=== PATIENT | female | born 1945 | race Caucasian/White ===

== ENCOUNTER 2016-04-24 16:02 | Emergency (ER) | payer OTHER, MEDICARE ==
[~2016-04-24] VITALS: Ht 157.5 cm; Wt 52.1 kg
[2016-04-24 16:02] VITALS: TEMP 98.5; Ht 157.5 cm; Wt 52.1 kg
[~2016-04-24 16:02] MED LIST: FLUT16SP12 NS; MONT10TA15 PO
--- NOTE | 2016-04-24 16:05 | NUR ---
PHYSICIAN VISIT DR. MCKEON IN TO SEE PATIENT.
--- OUTSIDE RECORDS SUMMARY | 2016-04-24 16:09 | XMS REPORT | Referral Summary ---
Author Author [facility] Organization [facility] Address Unknown Phone Unavailable Care Team Providers Care Music Video Producer Name Role Phone Mignon Patrick Primary Care Physician [phone] Encounter [facility] Date(s): 06/14/15 - 06/14/15 [facility] [address] [place] [address] [facility] Discharge Diagnosis: Asthma Discharge Disposition: 01-Home or Self Care Attending Physician: Maldonado Hernandez MD Admitting Physician: Maldonado Hernandez MD Vital Signs No data available for this section Problem List Condition Effective Dates Status Health Status Informant Allergic Active rhinitis/Hay fever(Confirmed) Allergic Active conjunctivitis(Confi rmed) Dry eye(Confirmed) Active Food Active allergy(Confirmed) High Active cholesterol(Confirme d) Chris's Resolved syndrome(Confirmed) Hyperlipidemia(Confi Resolved rmed) Asthma(Confirmed) Active Nonallergic Active rhinitis(Confirmed) Urticaria(Confirmed) Active Chicken Active pox(Confirmed) Allergies, Adverse Reactions, Alerts Substance Reaction Severity Status antihistamines Active sulfamethoxazole Hives/Skin Rash Active sulfanilamide topical Hives/Skin Rash Active trimethoprim Hives/Skin Rash Active Medications Atrovent 21 mcg/inh nasal spray 2 sprays, Nasal, TID, # 30 mL, 2 Refill(s), Pharmacy: [id number] Start Date: 06/14/15 Stop Date: 06/13/16 Status: Ordered cetirizine 10 mg oral tablet tabs, Oral, Daily, 0 Refill(s) Start Date: 10/19/13 Status: Ordered Flonase 50 mcg/inh nasal spray 2 sprays, Nasal, Daily, 0 Refill(s) Start Date: 09/14/13 Status: Ordered Qvar with Dose Counter 80 mcg/inh inhalation aerosol 1 puffs, Inhalation, BID, # 3 Each, 11 Refill(s), Pharmacy: [email or web address] Start Date: 07/03/14 Status: Ordered simvastatin 10 mg oral tablet 1 tabs, Oral, Bedtime (once a day), # 30 tabs, 0 Refill(s) Start Date: 09/14/13 Status: Ordered Singulair 10 mg oral tablet 1 tabs, Oral, qPM, # 30 tabs, 0 Refill(s) Start Date: 09/14/13 Status: Ordered Ventolin HFA 90 mcg/inh inhalation aerosol 2 puffs, Inhalation, q4hr, as needed for wheezing, # 8 g, 1 Refill(s), Pharmacy : [facility], 2 puffs Inhalation q4hr,PRN:as needed for wheezing Start Date: 07/03/14 Status: Ordered Results No data available for this section Immunizations No data available for this section Procedures Procedure Date Related Diagnosis Body Site Partial hypophysectomy by transfrontal 1987 approach Bilateral tubal ligation Cushings Fatty cyst removal Tonsillectomy and adenoidectomy Social History Social History Type Response Smoking Status Never smoker Assessment and Plan No data available for this section
--- OUTSIDE RECORDS SUMMARY | 2016-04-24 16:09 | XMS REPORT | Continuity of Care Document ---
Author Author [facility] Organization [facility] Address Unknown Phone Unavailable Allergies Active Description Code Type Severity Reaction Onset Reported/Identified Relationship to Patient Clinical Status Yes Antihistamines - Ethanolamine Antihistamines - Ethanolamine Drug Allergy Unknown 1ST GENERATION ANTIHISTAMINES?,MAY NEED TO CLARIFY W/PT 07/30/2015 Yes aspirin aspirin Drug Allergy Unknown . 07/30/2015 Yes Sulfa (Sulfonamide Antibiotics) Sulfa (Sulfonamide Antibiotics) Drug Allergy Unknown . 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 Visit Date/Time Discharge Status Pt. Type Provider Facility Loc./Unit Complaint [id number] 07/30/2015 09:06:00 2015 00:00:00 DIS Outpatient Justino Gonzales MD [facility]
--- OUTSIDE RECORDS SUMMARY | 2016-04-24 16:09 | XMS REPORT | Referral Summary ---
Author Author [facility] Organization [facility] Address Unknown Phone Unavailable Care Team Providers Care It Systems Engineer Name Role Phone Mignon Patrick Primary Care Physician [phone] Encounter Date(s): 10/06/14 - 10/06/14 [facility] [address] [place] [address] [facility] Discharge Diagnosis: Asthma Discharge Disposition: 01-Home or Self Care Attending Physician: Vicenta Petty Admitting Physician: Vicenta Petty Vital Signs No data available for this section Problem List Condition Effective Dates Status Health Status Informant Allergic Active rhinitis/Hay fever(Confirmed) Asthma(Confirmed) Active Allergic Active conjunctivitis(Confi rmed) Dry eye(Confirmed) Active Food Active allergy(Confirmed) High Active cholesterol(Confirme d) Chris's Resolved syndrome(Confirmed) Hyperlipidemia(Confi Resolved rmed) Nonallergic Active rhinitis(Confirmed) Urticaria(Confirmed) Active Chicken Active pox(Confirmed) Allergies, Adverse Reactions, Alerts Substance Reaction Severity Status antihistamines Active sulfamethoxazole Hives/Skin Rash Active sulfanilamide topical Hives/Skin Rash Active trimethoprim Hives/Skin Rash Active Medications albuterol 2.5 mg/3 mL (0.083%) inhalation solution See Instructions, 1 vial every 4-6 hrs prn., 0 Refill(s) Start Date: 09/14/13 Status: Ordered Atrovent 42 mcg/inh nasal spray 2 sprays, Nasal, TID, # 15 mL, 11 Refill(s), Pharmacy: [facility] Start Date: 02/22/15 Status: Ordered cetirizine 10 mg oral tablet tabs, Oral, Daily, 0 Refill(s) Start Date: 10/19/13 Status: Ordered Flonase 50 mcg/inh nasal spray 2 sprays, Nasal, Daily, 0 Refill(s) Start Date: 09/14/13 Status: Ordered Qvar with Dose Counter 80 mcg/inh inhalation aerosol 1 puffs, Inhalation, BID, # 3 Each, 11 Refill(s), Pharmacy: [facility] Start Date: 07/03/14 Status: Ordered [...] # 8 g, 1 Refill(s), Pharmacy : [facility], 2 puffs Inhalation q4hr,PRN:as needed [...]
--- OUTSIDE RECORDS SUMMARY | 2016-04-24 16:09 | XMS REPORT | Referral Summary ---
Author Author [facility] Organization [facility] Address Unknown Phone Unavailable Care Team Providers Care Trimmer Loader Name Role Phone Mignon Patrick Primary Care Physician [phone] Encounter [facility] [id number] Date(s): 10/06/14 - 10/06/14 [facility] [address] [place] [address] [facility] Discharge Diagnosis: Allergic conjunctivitis Discharge Diagnosis: Food allergy Discharge Diagnosis: Dry eye Discharge Diagnosis: Asthma Discharge Diagnosis: Allergic rhinitis Discharge Diagnosis: Nonallergic rhinitis Discharge Disposition: 01-Home or Self Care Attending [...] TID, # 15 mL, 11 Refill(s), Pharmacy: [id number] Start Date: 02/22/15 Status: Ordered cetirizine 10 mg oral tablet tabs, Oral, Daily, 0 Refill(s) Start Date: 10/19/13 Status: Ordered Flonase 50 mcg/inh nasal spray 2 sprays, Nasal, Daily, 0 Refill(s) Start Date: 09/14/13 Status: Ordered Qvar with Dose Counter 80 mcg/inh inhalation aerosol 1 puffs, Inhalation, BID, # 3 Each, 11 Refill(s), Pharmacy: [facility] Start Date: 07/03/14 Status: Ordered [...] # 8 g, 1 Refill(s), Pharmacy : [facility], 2 puffs Inhalation q4hr,PRN:as needed [...] Smoking Status Never smoker Assessment and Plan Extracted from: Title: Ambulatory Patient Education Author: Vicenta Petty Date: Family Medicine Asthma Asthma is a recurring condition in which the airways tighten and narrow. Asthma can make it difficult to breathe. It can cause coughing, wheezing, and shortness of breath. Asthma episodes, also called asthma attacks, range from minor to life-threatening. Asthma cannot be cured, but medicines and lifestyle changes can help control it. CAUSES Asthma is believed to be caused by inherited (genetic) and environmental factors , but its exact cause is unknown. Asthma may be triggered by allergens, lung infections, or irritants in the air. Asthma triggers are different for each person. Common triggers include: Animal dander. Dust mites. Cockroaches. Pollen from trees or grass. Mold. Smoke. Air pollutants such as dust, household store host, hair sprays, aerosol sprays, paint fumes, strong chemicals, or strong odors. Cold air, weather changes, and winds (which increase molds and pollens in the air). Strong emotional expressions such as crying or laughing hard. Stress. Certain medicines (such as aspirin) or types of drugs (such as beta- blockers). Sulfites in foods and drinks. Foods and drinks that may contain sulfites include dried fruit, potato chips, and sparkling grape juice. Infections or inflammatory conditions such as the flu, a cold, or an inflammation of the nasal membranes (rhinitis). Gastroesophageal reflux disease (GERD). Exercise or strenuous activity. SYMPTOMS Symptoms may occur immediately after asthma is triggered or many hours later. Symptoms include: Wheezing. Excessive nighttime or mental health social worker coughing. Frequent or severe coughing with a common cold. Chest tightness. Shortness of breath. DIAGNOSIS The diagnosis of asthma is made by a review of your medical history and a physical exam. Tests may also be performed. These may include: Lung function studies. These tests show how much air you breathe in and out. Allergy tests. Imaging tests such as X-rays. TREATMENT Asthma cannot be cured, but it can usually be controlled. Treatment involves identifying and avoiding your asthma triggers. It also involves medicines. There are 2 classes of medicine used for asthma treatment: Controller medicines. These prevent asthma symptoms from occurring. They are usually taken every day. Reliever or rescue medicines. These quickly relieve asthma symptoms. They are used as needed and provide short-term relief. Your health care provider will help you create an asthma action plan. An asthma action plan is a written plan for managing and treating your asthma attacks. It includes a list of your asthma triggers and how they may be avoided. It also includes information on when medicines should be taken and when their dosage should be changed. An action plan may also involve the use of a device called a peak flow meter. A peak flow meter measures how well the lungs are working. It helps you monitor your condition. HOME CARE INSTRUCTIONS Take medicine as directed by your health care provider. Speak with your health care provider if you have questions about how or when to take the medicines. Use a peak flow meter as directed by your health care provider. Record and keep track of readings. Understand and use the action plan to help minimize or stop an asthma attack without needing to seek medical care. Control your home environment in the following ways to help prevent asthma attacks: Do not smoke. Avoid being exposed to secondhand smoke. Change your heating and air conditioning filter regularly. Limit your use of fireplaces and wood stoves. Get rid of pests (such as roaches and mice) and their droppings. Throw away plants if you see mold on them. Clean your floors and dust regularly. Use unscented cleaning products. Try to have someone else vacuum for you regularly. Stay out of rooms while they are being vacuumed and for a short while afterward. If you vacuum, use a dust mask from a hardware store, a double-layered or microfilter vacuum bus cleaner bag, or a vacuum bus cleaner with a HEPA filter. Replace carpet with wood, tile, or vinyl mitzy. Carpet can trap dander and dust. Use allergy-proof pillows, mattress covers, and box spring covers. Wash bed sheets and blankets every week in hot water and dry them in a dryer. Use blankets that are made of polyester or cotton. Clean bathrooms and roby with bleach. If possible, have someone repaint the mccarthy in these rooms with mold-resistant paint. Keep out of the rooms that are being cleaned and painted. Wash hands frequently. SEEK MEDICAL CARE IF: You have wheezing, shortness of breath, or a cough even if taking medicine to prevent attacks. The colored mucus you cough up (sputum) is thicker than usual. Your sputum changes from clear or white to yellow, green, atwood, or bloody. You have any problems that may be related to the medicines you are taking ( such as a rash, itching, swelling, or trouble breathing). You are using a reliever medicine more than 23 times per week. Your peak flow is still at 5079% of your personal best after following your action plan for 1 hour. SEEK IMMEDIATE MEDICAL CARE IF: You seem to be getting worse and are unresponsive to treatment during an asthma attack. You are short of breath even at rest. You get short of breath when doing very little physical activity. You have difficulty eating, drinking, or talking due to asthma symptoms. You develop chest pain. You develop a fast heartbeat. You have a bluish color to your lips or fingernails. You are lightheaded, dizzy, or faint. Your peak flow is less than 50% of your personal best. You have a fever or persistent symptoms for more than 23 days. You have a fever and symptoms suddenly get worse. MAKE SURE YOU: Understand these instructions. Will watch your condition. Will get help right away if you are not doing well or get worse. Document Released: 02/23/2006 Document Revised: 02/28/2014 Document Reviewed: [facility] Patient Information 2015 [facility], [facility]. This information is not intended to replace advice given to you by your health care provider. Make sure you discuss any questions you have with your health care provider. No follow up information was provided.
--- OUTSIDE RECORDS SUMMARY | 2016-04-24 16:09 | XMS REPORT | Referral Summary ---
Author Organization Unknown Address Unknown Phone Unavailable Care Team Providers Care Construction Supervisor/Carpenter Name Role Phone Mignon Patrick Primary Care Physician [phone] Encounter [facility] [id number] Date(s): 04/17/14 - 04/17/14 [facility] [address] [place] [address] [facility] Discharge Diagnosis: Food allergy Discharge Diagnosis: Allergic rhinitis Discharge Diagnosis: Allergic conjunctivitis Discharge Diagnosis: Non-allergic rhinitis Discharge Diagnosis: Asthma Discharge Disposition: Home or Self Care Attending Physician: Maldonado Hernandez MD Admitting Physician: Maldonado Hernandez MD Vital Signs Most recent to 1 oldest [Reference Range]: Blood Pressure 110/68 mmHg [90-140/60-90 mmHg] (04/17/14 1:48 PM) Problem List Condition Effective Dates Status Health Status Informant Allergic Active rhinitis(Confirmed) Asthma(Confirmed) Active Allergic Active conjunctivitis(Confi rmed) SHANIQUE'S Resolved SYNDROME(Confirmed) Dry eye(Confirmed) Active Food Active allergy(Confirmed) Hyperlipidemia(Confi Resolved rmed) Nonallergic Active rhinitis(Confirmed) Urticaria(Confirmed) Active Allergies, Adverse Reactions, Alerts Substance Reaction Severity Status antihistamines Active sulfamethoxazole Hives/Skin Rash Active sulfanilamide topical Hives/Skin Rash Active trimethoprim Hives/Skin Rash Active Medications albuterol 2.5 mg/3 mL (0.083%) inhalation solution See Instructions, 1 vial every 4-6 hrs prn., 0 Refill(s) Special Instructions: 1 vial every 4-6 hrs prn. Start Date: 09/14/13 Status: Ordered albuterol CFC free 90 mcg/inh inhalation aerosol 2 puffs, Inhalation, q4hr, as needed for wheezing, use with spacer chamber, # 3 Each, 0 Refill(s), Pharmacy: [facility] Special Instructions: use with spacer chamber Start Date: 04/17/14 Stop Date: 04/18/14 Status: Ordered budesonide 0.25 mg/2 mL inhalation suspension 2 mL, NEB, BID, Pt must use 0.25mg due to insurance., # 120 mL, 1 Refill(s), Pharmacy: [facility], 2 mL NEB BID,Instr:Pt must use 0.25mg due to insurance. Special Instructions: Pt must use 0.25mg due to insurance. Start Date: 12/02/13 Status: Ordered cetirizine 10 mg oral tablet tabs, Oral, Daily, 0 Refill(s) Start Date: 10/19/13 Status: Ordered Flonase 50 mcg/inh nasal spray 2 sprays, Nasal, Daily, 0 Refill(s) Start Date: 09/14/13 Status: Ordered predniSONE 20 mg oral tablet 2 tabs, Oral, Daily, Use as directed in Asthma Action Plan, X 7 days, # 14 tabs , 1 Refill(s), Pharmacy: [id number], 2 tabs Oral Daily,x7 days,Instr :Use as directed in Asthma Action Plan Special Instructions: Use as directed in Asthma Action Plan Start Date: 04/17/14 Stop Date: 05/01/14 Status: Ordered Qvar 40 mcg/inh inhalation aerosol 1 puffs, Inhalation, BID, # 3 inhalers, 3 Refill(s), Pharmacy: [facility] Start Date: 01/04/14 Status: Ordered simvastatin 10 mg oral tablet 1 tabs, Oral, Bedtime (once a day), # 30 tabs, 0 Refill(s) Start Date: 09/14/13 Status: Ordered Singulair 10 mg oral tablet 1 tabs, Oral, qPM, # 30 tabs, 0 Refill(s) Start Date: 09/14/13 Status: Ordered Ventolin HFA 90 mcg/inh inhalation aerosol See Instructions, 2-4 puffs every 4-6 hrs prn., 0 Refill(s) Special Instructions: 2-4 puffs every 4-6 hrs prn. Start Date: 09/14/13 Status: Ordered Results No data available for this section Immunizations No data available for this section Procedures Procedure Date Related Diagnosis Body Site Partial hypophysectomy by transfrontal 1987 approach Bilateral tubal ligation Tonsillectomy and adenoidectomy Social History Social History Type Response Smoking Status Never smoker Assessment and Plan Extracted from: Title: Ambulatory Patient Education Author: Maldonado Hernandez MD Date: Family Medicine Asthma Prevention Cigarette smoke, house dust, molds, pollens, animal dander, certain insects, exercise, and even cold air are all triggers that can cause an asthma attack. Often, no specific triggers are identified. Take the following measures around your house to reduce attacks: Avoid cigarette and other smoke. No smoking should be allowed in a home where someone with asthma lives. If smoking is allowed indoors, it should be done in a room with a closed door, and a window should be opened to clear the air. If possible, do not use a wood-burning stove, kerosene heater, or fireplace. Minimize exposure to all sources of smoke, including incense, candles , fires, and fireworks. Decrease pollen exposure. Keep your windows shut and use central air during the pollen allergy season. Stay indoors with windows closed from late morning to afternoon, if you can. Avoid mowing the lawn if you have grass pollen allergy. Change your clothes and shower after being outside during this time of year. Remove molds from bathrooms and wet areas. Do this by cleaning the floors with a fungicide or diluted bleach. Avoid using humidifiers, vaporizers, or swamp coolers. These can spread molds through the air. Fix leaky faucets, pipes , or other sources of water that have mold around them. Decrease house dust exposure. Do this by using bare floors, vacuuming frequently, and changing furnace and air cooler filters frequently. Avoid using feather, wool, or foam bedding. Use polyester pillows and plastic covers over your mattress. Wash bedding weekly in hot water (hotter than 130 F). Try to get someone else to vacuum for you once or twice a week, if you can. Stay out of rooms while they are being vacuumed and for a short while afterward. If you vacuum, use a dust mask (from a hardware store), a double- layered or microfilter vacuum machine cleaner bag, or a vacuum machine cleaner with a HEPA filter. Avoid perfumes, talcum powder, hair spray, paints and other strong odors and fumes. Keep warm-blooded pets (cats, dogs, rodents, birds) outside the home if they are triggers for asthma. If you can't keep the pet outdoors, keep the pet out of your bedroom and other sleeping areas at all times, and keep the door closed. Remove carpets and furniture covered with cloth from your home. If that is not possible, keep the pet away from fabric-covered furniture and carpets. Eliminate cockroaches. Keep food and garbage in closed containers. Never leave food out. Use poison baits, traps, powders, gels, or paste (for example, boric acid). If a spray is used to kill cockroaches, stay out of the room until the odor goes away. Decrease indoor humidity to less than 60%. Use an indoor air cleaning device. Avoid sulfites in foods and beverages. Do not drink beer or wine or eat dried fruit, processed potatoes, or shrimp if they cause asthma symptoms. Avoid cold air. Cover your nose and mouth with a scarf on cold or windy days. Avoid aspirin. This is the most common drug causing serious asthma attacks. If exercise triggers your asthma, ask your caregiver how you should prepare before exercising. (For example, ask if you could use your inhaler 10 minutes before exercising.) Avoid close contact with people who have a cold or the flu since your asthma symptoms may get worse if you catch the infection from them. Wash your hands thoroughly after touching items that may have been handled by others with a respiratory infection. Get a flu shot every year to protect against the flu virus, which often makes asthma worse for days to weeks. Also get a pneumonia shot once every five to 10 years. Call your caregiver if you want further information about measures you can take to help prevent asthma attacks. Document Released: 02/23/2006 Document Revised: 05/17/2012 Document Reviewed: [employer] Patient Information 2014 [employer]. No follow up information was provided. Extracted from: Title: Allergy Office Visit Note Author: Maldonado Hernandez MD Date: 04/17/14 Assessment/Plan Allergic conjunctivitis Controlled Ordered: Office Visit Level 4 Est 72780 Return to Clinic Allergic rhinitis Controlled Ordered: Office Visit Level 4 Est 38954 Return to Clinic Asthma Improved Ordered: albuterol, 2 puffs, Inhalation, q4hr, as needed for wheezing, use with spacer chamber, # 3 Each, 0 Refill(s), Pharmacy: [facility] predniSONE, 2 tabs, Oral, Daily, Use as directed in Asthma Action Plan, X 7 days, # 14 tabs, 1 Refill(s), Pharmacy: [id number], 2 tabs Oral Daily,x7 days,Instr:Use as directed in Asthma Action Plan Office Visit Level 4 Est 54155 Return to Clinic Food allergy Stable Ordered: Office Visit Level 4 Est 74171 Return to Clinic Non-allergic rhinitis Stable Ordered: Office Visit Level 4 Est 74067 Return to Clinic Recommendations: When finished with budesonide, switch to Qvar 40 g, 2 puffs twice a day. Asthma Action Plan (290/230/145 L/min) - add Dulera HFA (200/5 g), 2 puffs twice a day with a spacer as indicated in the yellow zone parameter. Use prednisone 40 mg by mouth daily 7 as indicated for the red zone parameter. Continue medications for allergic rhinitis as usual. Return in 10 weeks, sooner if necessary for follow up of Asthma & allergies
--- OUTSIDE RECORDS SUMMARY | 2016-04-24 16:09 | XMS REPORT | Referral Summary ---
Author Author [facility] Organization [facility] Address Unknown Phone Unavailable Care Team Providers Care Yacht Master Name Role Phone Mignon Patrick Primary Care Physician [phone] Encounter [facility] Date(s): 02/22/15 - 02/22/15 [facility] [address] [place] [address] [facility] Discharge Diagnosis: Asthma Discharge Disposition: 01-Home or [...] TID, # 15 mL, 11 Refill(s), Pharmacy: [id number] Start Date: 02/22/15 Status: Ordered cetirizine 10 mg oral tablet tabs, Oral, Daily, 0 Refill(s) Start Date: 10/19/13 Status: Ordered Flonase 50 mcg/inh nasal spray 2 sprays, Nasal, Daily, 0 Refill(s) Start Date: 09/14/13 Status: Ordered Qvar with Dose Counter 80 mcg/inh inhalation aerosol 1 puffs, Inhalation, BID, # 3 Each, 11 Refill(s), Pharmacy: [facility] Start Date: 07/03/14 Status: Ordered [...] # 8 g, 1 Refill(s), Pharmacy : [facility], 2 puffs Inhalation q4hr,PRN:as needed [...]
--- OUTSIDE RECORDS SUMMARY | 2016-04-24 16:09 | XMS REPORT | Referral Summary ---
Author Organization Unknown Address Unknown Phone Unavailable Care Team Providers Care Custodial Operations Manager Name Role Phone Mignon Patrick Primary Care Physician [phone] Encounter [facility] [id number] Date(s): 07/03/14 - 07/03/14 [facility], Allergy Asthma [address] [place] [address] [facility] Discharge Diagnosis: Asthma Discharge Disposition: Home or Self Care Attending Physician: Maldonado Hernandez MD Admitting Physician: Maldonado Hernandez MD Vital Signs No data available for this section Problem List Condition Effective Dates Status Health Status Informant Allergic Active rhinitis/Hay fever(Confirmed) Asthma(Confirmed) Active Allergic Active conjunctivitis(Confi rmed) Dry eye(Confirmed) Active Food Active allergy(Confirmed) High Active cholesterol(Confirme d) [place]'s Resolved syndrome(Confirmed) Hyperlipidemia(Confi Resolved rmed) Nonallergic Active [...] hrs prn. Start Date: 09/14/13 Status: Ordered cetirizine 10 mg oral tablet tabs, Oral, Daily, 0 Refill(s) Start Date: 10/19/13 Status: Ordered Flonase 50 mcg/inh nasal spray 2 sprays, Nasal, Daily, 0 Refill(s) Start Date: 09/14/13 Status: Ordered Qvar with Dose Counter 80 mcg/inh inhalation aerosol 1 puffs, Inhalation, BID, # 3 Each, 11 Refill(s), [facility] Start Date: 07/03/14 Status: Ordered [...] # 8 g, 1 Refill(s), Pharmacy : [facility], 2 puffs Inhalation q4hr,PRN:as needed [...]
--- OUTSIDE RECORDS SUMMARY | 2016-04-24 16:09 | XMS REPORT | Referral Summary ---
Author Organization Unknown Address Unknown Phone Unavailable Care Team Providers Care Oncology Registrar Name Role Phone Mignon Patrick Primary Care Physician [phone] Encounter [facility] Date(s): 04/17/14 - [facility] [address] [place], [place] [address] Discharge Diagnosis: Asthma Discharge Disposition: Home or [...] chamber, # 3 Each, 0 Refill(s), Pharmacy: [facility] Special Instructions: use with spacer chamber Start Date: 04/17/14 Stop Date: 04/18/14 Status: Ordered budesonide 0.25 mg/2 mL inhalation suspension 2 mL, NEB, BID, Pt must use 0.25mg due to insurance., # 120 mL, 1 Refill(s), Pharmacy: [facility], 2 mL NEB BID,Instr:Pt must use [...] # 14 tabs , 1 Refill(s), Pharmacy: [id number], 2 tabs Oral Daily,x7 days,Instr :Use as directed in Asthma Action Plan Special Instructions: Use as directed in Asthma Action Plan Start Date: 04/17/14 Stop Date: 05/01/14 Status: Ordered Qvar 40 mcg/inh inhalation aerosol 1 puffs, Inhalation, BID, # 3 inhalers, 3 Refill(s), Pharmacy: [facility] Start Date: 01/04/14 Status: Ordered simvastatin [...]
--- OUTSIDE RECORDS SUMMARY | 2016-04-24 16:09 | XMS REPORT | Referral Summary ---
Author Author [facility] Organization [facility] Address Unknown Phone Unavailable Care Team Providers Care Plant Manager Name Role Phone Mignon Patrick Primary Care Physician [phone] Encounter Date(s): 02/22/15 - 02/22/15 [facility] [address] [place] [address] [facility] Discharge Diagnosis: Non-allergic rhinitis Discharge Diagnosis: Mild persistent chronic asthma without complication Discharge Diagnosis: Allergic rhinitis Discharge Diagnosis: Cough Discharge Disposition: 01-Home or Self Care Attending Physician: Maldonado Hernandez MD Admitting Physician: Maldonado Hernandez MD Vital Signs Most recent to 1 oldest [Reference Range]: Blood Pressure 122/70 mmHg [90-140/60-90 mmHg] (02/22/15 11:22 AM) Problem List Condition Effective Dates Status Health [...] TID, # 15 mL, 11 Refill(s), Pharmacy: [id number] Start Date: 02/22/15 Status: Ordered cetirizine 10 mg oral tablet tabs, Oral, Daily, 0 Refill(s) Start Date: 10/19/13 Status: Ordered Flonase 50 mcg/inh nasal spray 2 sprays, Nasal, Daily, 0 Refill(s) Start Date: 09/14/13 Status: Ordered Qvar with Dose Counter 80 mcg/inh inhalation aerosol 1 puffs, Inhalation, BID, # 3 Each, 11 Refill(s), Pharmacy: [facility] Start Date: 07/03/14 Status: Ordered [...] # 8 g, 1 Refill(s), Pharmacy : [facility], 2 puffs Inhalation q4hr,PRN:as needed [...] smoker Assessment and Plan Extracted from: Title: Allergy Office Visit Note Author: Maldonado Hernandez MD Date: 02/22/15 Assessment/Plan 1.Cough Most likely caused by post nasal drainage. Ordered: Office Visit Level 4 Est 83155 Return to Clinic 2.Non-allergic rhinitis Fair controlwith no evidence ofacute or chronic inflammation; Ordered: ipratropium nasal, 2 sprays, Nasal, TID, # 15 mL, 11 Refill(s), Pharmacy: [facility] Office Visit Level 4 Est [id number] Return to Clinic 3.Allergic rhinitis Controlled Ordered: ipratropium nasal, 2 sprays, Nasal, TID, # 15 mL, 11 Refill(s), Pharmacy: [id number] Office Visit Level 4 Est [id number] Return to Clinic 4.Mild persistent chronic asthma without complication Controlled Ordered: Office Visit Level 4 Est [id number] Return to Clinic Recommendations: Continue current medications for asthma. Use albuterolHFA 2 puffs every 4 hours as neededforchest tightness and coughing. Addipratropium bromide nasal spray (0.06%), 2 sprays each nostril3 times a day. Titrate the dose downward once control of rhinorrhea is achieved. The patient should keep her currently scheduled follow-up visitbut communicateifrhinorrheaand/or coughinghave not improved. Referrals to Other Providers Referred by: Maldonado Hernandez MD
--- OUTSIDE RECORDS SUMMARY | 2016-04-24 16:09 | XMS REPORT | Referral Summary ---
Author Author [facility] Organization [facility] Address Unknown Phone Unavailable Care Team Providers Care Curtain Worker Name Role Phone Mignon Patrick Primary Care Physician [phone] Encounter [facility] [id number] Date(s): 06/14/15 - 06/14/15 [facility] [address] [place] [address] [facility] Discharge Diagnosis: Allergic conjunctivitis Discharge Diagnosis: Allergic rhinitis Discharge Diagnosis: Nonallergic rhinitis Discharge Diagnosis: Asthma Discharge Disposition: 01-Home or Self Care Attending Physician: Elizabeth Enamorado APRN Admitting Physician: Elizabeth Enamorado APRN Vital Signs Most recent to 1 oldest [Reference Range]: Peripheral Pulse 86 bpm Rate [60-100 bpm] (06/14/15 2:05 PM) Blood Pressure 100/70 mmHg [90-140/60-90 mmHg] (06/14/15 2:05 PM) Problem List Condition Effective Dates Status [...] TID, # 30 mL, 2 Refill(s), Pharmacy: [id number] Start Date: 06/14/15 Stop Date: 06/13/16 Status: Ordered cetirizine 10 mg oral tablet tabs, Oral, Daily, 0 Refill(s) Start Date: 10/19/13 Status: Ordered Flonase 50 mcg/inh nasal spray 2 sprays, Nasal, Daily, 0 Refill(s) Start Date: 09/14/13 Status: Ordered Qvar with Dose Counter 80 mcg/inh inhalation aerosol 1 puffs, Inhalation, BID, # 3 Each, 11 Refill(s), Pharmacy: [facility] Start Date: 07/03/14 Status: Ordered [...] # 8 g, 1 Refill(s), Pharmacy : [facility], 2 puffs Inhalation q4hr,PRN:as needed [...] smoker Assessment and Plan Extracted from: Title: Office Visit Note Author: Elizabeth Enamorado APRN Date: 06/14/15 Assessment/Plan 1.Allergic rhinitis well controlled. Continue cetirizine 10mg daily and Flonase 50mcg 2 sprays daily 2.Allergic conjunctivitis well controlled. 3.Nonallergic rhinitis well controlled. 4.Asthma Well controlled. No change in spirometry from previous visit. Continue Qvar 80mcg 1 puff BID. Singulair 10mg daily Ventolin 2-4 puffs q4hr prn. Follow up in 6 months. Referrals to Other Providers Referred by: Elizabeth Enamorado APRN
--- OUTSIDE RECORDS SUMMARY | 2016-04-24 16:10 | XMS REPORT | Referral Summary ---
Author Organization Unknown Address Unknown Phone Unavailable Care Team Providers Care Customs And Border Protection Officer Name Role Phone Mignon Patrick Primary Care Physician [phone] Encounter [facility] [id number] Date(s): 07/03/14 - 07/03/14 [facility] [address] [place] [address] [facility] Discharge Diagnosis: Food allergy Discharge Diagnosis: Nonallergic rhinitis Discharge Diagnosis: Dry eye Discharge Diagnosis: Allergic rhinitis Discharge Diagnosis: Asthma Discharge Diagnosis: Allergic conjunctivitis Discharge Disposition: Home or Self Care Attending Physician: Stacey Muñoz Admitting Physician: Stacey Muñoz Vital Signs No data available for this [...] sprays, Nasal, Daily, 0 Refill(s) Start Date: 7/9/14 Status: Ordered Qvar with Dose Counter 80 mcg/inh inhalation aerosol 1 puffs, Inhalation, BID, # 3 Each, 11 Refill(s), Pharmacy: [facility] Start Date: 07/03/14 Status: Ordered [...] # 8 g, 1 Refill(s), Pharmacy : [facility], 2 puffs Inhalation q4hr,PRN:as needed [...] Extracted from: Title: Office Visit Note Author: Stacey Muñoz Date: 07/03/14 Assessment/Plan Allergic conjunctivitis 1. Zaditor eye drops 1 drop twice a day if needed Allergic rhinitis 1. Zyrtec (cetirizine) 10 mg 1 tablet daily. 2. Flonase (Fluticasone) nasal spray 1 to 2 sprays each nostril daily. Asthma 1. Finish current supply of Qvar 40 mcg 2 puffs twice a day and then switch to Qvar 80 mcg1 puff twice daily, use spacer, rinse mouth after. 2. Ventolin HFA (albuterol) 2 to 4 puffs every 4 hours if needed for cough, wheeze or shortness of air, and 20 minutes prior to exercise if needed. Use spacer. 3. Singulair 10 mg 1 tablet every evening. Dry eye 1. Ocular lubricants as needed. Food allergy 1.avoid tree nutsand melons (positive on skin test) She does tolerate some tree nuts in ice cream and other items. Has been advised to avoid tree nuts. She has history of itchy mouth ifshe eats walnuts. But has tolerated other nuts withoutsymptoms. Nonallergic rhinitis See allergic rhinitis. Recheck in 6 months in 6 months with a breathing test first. Orders: albuterol, 2 puffs, Inhalation, q4hr, as needed for wheezing, # 8 g, 1 Refill(s), Pharmacy: [facility], 2 puffs Inhalation q4hr,PRN:as needed for wheezing beclomethasone, 1 puffs, Inhalation, BID, # 3 Each, 11 Refill(s), Pharmacy: [facility]
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
--- OUTSIDE RECORDS SUMMARY | 2016-04-24 16:16 | XMS REPORT | Continuity of Care Document ---
Author Author [facility] Organization [facility] Address Unknown Phone Unavailable Allergies [...] Status Pt. Type Provider Facility Loc./Unit Complaint [id number] 07/30/2015 09:06:00 2015 00:00:00 DIS Outpatient Justino Gonzales MD [facility] DI[facility]
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
--- NOTE | 2016-04-24 16:45 | NUR ---
C-COLLAR REMOVAL C-COLLAR REMOVED PER DR. MCKEON.
[2016-04-24] MEDS ORDERED: BACL20TA PO (16:51)
[2016-04-24] MEDS ORDERED: CARB100T52 PO (16:58)
[2016-04-24] MEDS ORDERED: AMOX1TAB16 PO (16:58)
[2016-04-24] MEDS ORDERED: BECL8.7A5 INH (16:58)
[2016-04-24] MEDS ORDERED: ALBU18HF2 ORAL INH (16:59)
[2016-04-24] MEDS ORDERED: OXYM30SP NAS (16:59)
[2016-04-24] MEDS ORDERED: KETOROLAC 60mg/2ml INJECTION IM ONE (17:00)
[2016-04-24] MEDS ORDERED: CALC600T12 PO (17:00)
[2016-04-24 17:15] VITALS: BP 147/79; PULSE 74; RESP 16; O2SAT 95
== END 2016-04-24 17:20 | disposition home or self-care (01) ==
LOC: ED 16:02
DX: S29.012A Strain of muscle and tendon of back wall of thorax, initial encounter (principal); M54.2 Cervicalgia; V49.40XA Driver injured in collision with unspecified motor vehicles in traffic accident, initial encounter; Y93.89 Activity, other specified; Y92.410 Unspecified street and highway as the place of occurrence of the external cause; Y99.8 Other external cause status
CPT/HCPCS: 70450; 72125; 72128; 96372; 99284; J1885